=== PATIENT | male | born 1980 | race Hispanic/Latino ===

== ENCOUNTER 2016-06-02 02:58 | Emergency (ER) | payer MEDICAID ==
[2016-06-02 02:58] VITALS: BMI 23.3
[2016-06-02 03:37] VITALS: BP 111/72; PULSE 96; RESP 16; TEMP 98.8; O2SAT 98
== END 2016-06-02 03:50 | disposition left against medical advice (07) ==
LOC: H.ER 02:58
DX: Z02.89 Encounter for other administrative examinations (principal)

== ENCOUNTER 2016-08-02 07:29 | Emergency (ER) | payer MEDICAID ==
[2016-08-02 07:30] VITALS: BMI 23.3
[2016-08-02 07:43] VITALS: BP 119/65; PULSE 98; RESP 18; TEMP 98.5; O2SAT 96
--- NOTE | 2016-08-02 08:13 | ED PDOC ---
HPI: Seizure Time Seen by Provider: 08/02/16 07:57 Chief Complaint (Nursing): Seizure Chief Complaint (Provider): Seizure History Per: Patient History/Exam Limitations: no limitations Recent Seizure Activity Began: Hours Ago: Number Of Seizures: One Precipitating Factor(s): None Associated Symptoms: Injury As A Result Of Seizure Activity Severity: Mild Additional History Per: Patient Additional Complaint(s): Patient is a 35 year old male, who has a history of seizure disorder, presents to the ED complaining of unwitnessed seizure at 2:00 today. Patient reports falling with injury to the left side of his face. Duration of seizure is unknown because it was unwitnessed. Patient has an increasing dose of Depakote due to increasing seizures. Patient denies any other injuries. Past Medical History Reviewed: Historical Data, Nursing Documentation, Vital Signs Vital Signs: Last Vital Signs Temp 98.5 F 08/02/16 07:42 Pulse 98 H 08/02/16 07:42 Resp 18 08/02/16 07:42 BP 119/65 08/02/16 07:42 Pulse Ox 96 08/02/16 09:58 - Medical History PMH: Anxiety, Asthma, Depression, Post Traumatic Stress Disorder, Seizures Denies: Diabetes, Hepatitis, HIV, HTN, Pulmonary Embolism, Chronic Kidney Disease, Sexually Transmitted Disease - Surgical History Surgical History: Appendectomy, Hernia Repair, Tonsillectomy (+ Adenoidectomy) - Family History Family History: States: No Known Family Hx - Immunization History Hx Tetanus Toxoid Vaccination: Yes (<10 years) - Home Medications Home Medications: Ambulatory Orders Medication Instructions Recorded Albuterol HFA [Ventolin HFA 90 1 puff INH PRN PRN 01/31/16 mcg/actuation (8 g)] ARIPiprazole [Abilify] 10 mg PO DAILY #30 tab 02/05/16 Divalproex [Depakote DR] 500 mg PO BID #60 tcp 02/05/16 Nicotine 14 mg/24 hr [Nicoderm CQ] 1 patch TD DAILY #28 patch 02/05/16 PARoxetine [Paxil] 20 mg PO HS #30 tab 02/05/16 traZODone [Desyrel] 50 mg PO HS #30 tab 02/05/16 - Allergies Allergies/Adverse Reactions: Allergies Allergy/AdvReac Type Severity Reaction Status Date / Time No Known Allergies Allergy Verified 01/31/16 13:02 Review of Systems ROS Statement: Except As Marked, All Systems Reviewed And Found Negative Constitutional: Positive for: Other (Sz +head injury) Cardiovascular: Negative for: Chest Pain Physical Exam - Reviewed Nursing Documentation Reviewed: Yes Vital Signs Reviewed: Yes - Physical Exam Appears: Positive for: Well, Non-toxic, No Acute Distress Head Exam: Positive for: NORMAL INSPECTION, NORMOCEPHALIC. Negative for: ATRAUMATIC (3cm LAC under left eye -no palpable fx) Skin: Positive for: Normal Color, Warm, DRY Eye Exam: Positive for: EOMI, Normal appearance, PERRL Neck: Positive for: Normal, Painless ROM, Supple Cardiovascular/Chest: Positive for: Regular Rate, Rhythm. Negative for: Gallop , Murmur Respiratory: Positive for: Normal Breath Sounds. Negative for: Accessory Muscle Use, Rhonchi, Respiratory Distress Extremity: Positive for: Normal ROM Neurologic/Psych: Positive for: Alert, Oriented (x3) - ECG O2 Sat by Pulse Oximetry: 96 (RA) Pulse Ox Interpretation: Normal Medical Decision Making Medical Decision Making: Time: 8:00 Impression: 35 y/o w/ Sz Plan: CT Head CT Maxillofacial Valproic Acid 9:55 Patient wishes to leave prior to completion of CT scan. Aware of risks including recurrent Sz and/or . Scribe Attestation: Documented by Shakeel Boyd acting as a scribe for Diego Aquino MD. Scribe Attestation: All medical record entries made by the Scribe were at my direction and personally dictated by me. I have reviewed the chart and agree that the record accurately reflects my personal performance of the history, physical exam, medical decision making, and the department course for this patient. I have also personally directed, reviewed, and agree with the discharge instructions and disposition. Disposition - Clinical Impression Clinical Impression: Recurrent seizures, Laceration - Patient ED Disposition Is Patient to be Admitted: No Counseled Patient/Family Regarding: Diagnosis, Need For Followup - Disposition Referrals: [facility] [Outside] Disposition: Against Medical Advice Disposition Time: 09:59 Condition: FAIR Instructions: Recurrent Seizures in Adults (ED), Facial Laceration (ED) Laceration - Laceration Repair No standard instances Wound Length (In cm): 3 Description Of Wound: Linear Wound Cleansed With: Sterile Saline Anesthesia: Lidocaine 1%, With Epi (3cc) Wound Examination: Irrigated With Saline Wound Closure: Suture Suture Technique And Material Used: Interrupted, Nylon (#6) Wound Complexity: Simple
[2016-08-02] MEDS ORDERED: Lidocaine 2% w Epi 1:100,000 Inj IJ ONE (08:15)
[2016-08-02] MEDS ORDERED: Lidocaine/Epi 1% 1:100000 20 ML IJ ONE (08:19)
== END 2016-08-02 10:19 | disposition left against medical advice (07) ==
LOC: H.ER 07:29
DX: G40.909 Epilepsy, unspecified, not intractable, without status epilepticus (principal); S01.81XA Laceration without foreign body of other part of head, initial encounter; W19.XXXA Unspecified fall, initial encounter; Y92.89 Other specified places as the place of occurrence of the external cause

== ENCOUNTER 2016-08-07 18:59 | Emergency (ER) | payer MEDICAID ==
[2016-08-07 18:59] VITALS: BMI 23.3
[2016-08-07 19:04] VITALS: BP 108/72; PULSE 104; RESP 18; TEMP 99.1; O2SAT 98
[2016-08-07] MEDS ORDERED: Sodium Chloride 0.9% 1,000 ML IV STA (19:37)
--- NOTE | 2016-08-07 19:43 | ED PDOC ---
HPI: Seizure Time Seen by Provider: 08/07/16 19:12 Chief Complaint (Nursing): Seizure Chief Complaint (Provider): Tremor and dizzy History Per: Patient History/Exam Limitations: no limitations Additional Complaint(s): Pt. with dizziness since waking up. Feels tremors more frequent today. No full seizure. Suffers from seizures and gets tremors. Pt. with no vision changes, headaches, back pain, dyspnea, chest pain, abd pain, nausea, vomit, leg pain, fall and injury. Fell and had seizure last week and had stitches to the face. Had ct at that time and was ok per pt. Denies numbness, tingles. Ran out of ativan and wants it now. Also feels panic attacks today. Not suicidal or homicidal. No drugs or etoh. Past Medical History Reviewed: Nursing Documentation, Vital Signs Vital Signs: Last Vital Signs Temp 99.1 F 08/07/16 19:00 Pulse 104 H 08/07/16 19:00 Resp 18 08/07/16 19:00 BP 108/72 08/07/16 19:00 Pulse Ox 98 08/07/16 20:03 - Medical History PMH: Anxiety, Bipolar Disorder, Depression, Post Traumatic Stress Disorder, Seizures Denies: Asthma, Diabetes, Hepatitis, HIV, HTN, Pulmonary Embolism, Chronic Kidney Disease, Sexually Transmitted Disease Other PMH: PE - Surgical History Surgical History: Appendectomy, Hernia Repair, Tonsillectomy (+ Adenoidectomy) - Family History Family History: States: Unknown Family Hx - Living Arrangements Living Arrangements: With Family - Social History Current smoker - smoking cessation education provided: No Alcohol: None Drugs: Denies - Immunization History Hx Tetanus Toxoid Vaccination: Yes (<10 years) - Home Medications Home Medications: Ambulatory Orders Medication Instructions Recorded Albuterol HFA [Ventolin HFA 90 1 puff INH PRN PRN 01/31/16 mcg/actuation (8 g)] ARIPiprazole [Abilify] 10 mg PO DAILY #30 tab 02/05/16 Divalproex [Depakote DR] 500 mg PO BID #60 tcp 02/05/16 Nicotine 14 mg/24 hr [Nicoderm CQ] 1 patch TD DAILY #28 patch 02/05/16 PARoxetine [Paxil] 20 mg PO HS #30 tab 02/05/16 traZODone [Desyrel] 50 mg PO HS #30 tab 02/05/16 - Allergies Allergies/Adverse Reactions: Allergies Allergy/AdvReac Type Severity Reaction Status Date / Time No Known Allergies Allergy Verified 08/07/16 19:00 Review of Systems ROS Statement: Except As Marked, All Systems Reviewed And Found Negative Neurological: Positive for: Dizziness, Other (tremors) Physical Exam - Reviewed Nursing Documentation Reviewed: Yes Vital Signs Reviewed: Yes - Physical Exam Appears: Positive for: Non-toxic, No Acute Distress Head Exam: Positive for: ATRAUMATIC, NORMAL INSPECTION, NORMOCEPHALIC Skin: Positive for: Normal Color, Warm, DRY Eye Exam: Positive for: EOMI, Normal appearance, PERRL ENT: Positive for: Other (L face with stitches; nontender; echymosis) Neck: Positive for: Normal, Painless ROM, Supple Cardiovascular/Chest: Positive for: Regular Rate, Rhythm. Negative for: Edema Respiratory: Positive for: CNT, Normal Breath Sounds Gastrointestinal/Abdominal: Positive for: Normal Exam, Bowel Sounds, Soft. Negative for: Tenderness Back: Positive for: Normal Inspection. Negative for: L CVA Tenderness, R CVA Tenderness Extremity: Positive for: Normal ROM. Negative for: Tenderness, Pedal Edema Neurologic/Psych: Positive for: Alert, certified athletic trainer II-XII, Oriented. Negative for: Motor/Sensory Deficits, Facial Droop - Laboratory Results Result Diagrams: 08/07/16 19:50 08/07/16 19:50 Interpretation Of Abn Labs: 11 wbc; low valproic acid level - ECG ECG: Positive for: Interpreted By Me, Viewed By Me ECG Rhythm: Positive for: Normal QRS, Normal ST Segment, Sinus Rhythm O2 Sat by Pulse Oximetry: 98 Pulse Ox Interpretation: Normal - Progress ED Course And Treament: 2106: Stable. AAOx3. Pain free. Tolerated PO. Crisis saw pt. Does not meet criteria for admit. Ativan given which will help with seizure like episodes. Pt. to fu with pcp and neurologist for seizures and depakote adjutsment. Disposition - Clinical Impression Clinical Impression: Panic attack, Seizure, Seizure secondary to subtherapeutic anticonvulsant medication - Patient ED Disposition Is Patient to be Admitted: No Counseled Patient/Family Regarding: Studies Performed, Diagnosis, Need For Followup - Disposition Referrals: [facility] [Outside] - 08/10/16 Disposition: Routine/Home Disposition Time: 21:10 Condition: STABLE Additional Instructions: Return if not better in 3 days. Instructions: Panic Attack (ED), Epilepsy (ED)
[2016-08-07 20:04] LABS: BASO # 0.1 K/uL (0.0-0.2); EOS # 0.2 K/uL (0.0-0.7); EOS % 2.1 % (0.0-4.0); HEMATOCRIT 45.3 % (35.0-51.0); LYMPH % 45.7 % (20.0-40.0); MEAN CELL VOLUME 94.4 fl (80.0-94.0); MEAN CORPUSCULAR HEMOGLOBIN 32.6 pg (27.0-31.0); MEAN CORPUSCULAR HGB CONC 34.5 g/dL (33.0-37.0); MEAN PLATELET VOLUME 7.4 fl (7.2-11.7); MONO % 8.7 % (0.0-10.0); NEUT # 4.7 K/uL (1.8-7.0); NEUT % 42.5 % (50.0-75.0); NRBC % 0.2 % (0.0-0.0); RED CELL DISTRIBUTION WIDTH 13.4 % (11.5-14.5)
[2016-08-07 20:36] LABS: ALB/GLOB RATIO 1.6 (1.0-2.1); ALCOHOL SERUM < 10 mg/dl (0-10); ALKALINE PHOSPHATASE 66 U/L (38-126); ALT/SGPT 48 U/L (21-72); AST/SGOT 33 U/L (17-59); BILIRUBIN,TOTAL 0.3 mg/dl (0.2-1.3); BLOOD UREA NITROGEN 21 mg/dl (9-20); CALCIUM 9.5 mg/dL (8.4-10.2); CARBON DIOXIDE 30 mmol/L (22-30); CHLORIDE 100 mmol/L (98-107); GFR AFRICAN-AMERICAN > 60; GLUCOSE,RANDOM 78 mg/dL (75-110); SODIUM 142 mmol/l (132-148); TOTAL PROTEIN 7.5 G/DL (6.3-8.2)
--- NOTE | 2016-08-08 14:04 | CARD ---
APPROVED REPORT EKG Measurement Heart [id number] <Conclusion> Normal sinus rhythm Inferior infarct, age undetermined Abnormal ECG
== END 2016-08-07 21:24 | disposition home or self-care (01) ==
LOC: H.ER 18:59
DX: F41.0 Panic disorder [episodic paroxysmal anxiety] (principal); R56.9 Unspecified convulsions

== ENCOUNTER 2016-08-11 08:57 | Emergency (ER) | payer MEDICAID ==
[2016-08-11 09:00] VITALS: TEMP 97
[2016-08-11 09:01] VITALS: BMI 24.5
[2016-08-11 09:07] VITALS: BP 110/65; PULSE 86; RESP 20; O2SAT 98
--- NOTE | 2016-08-11 09:19 | ED PDOC ---
HPI: Wound Care - HPI Time Seen by Provider: 08/11/16 09:14 Chief Complaint (Nursing): Suture/Staple Removal Chief Complaint (Provider): Suture removal History Per: Patient History Of Present Illness: Pt sustained facial laceration 08/02/16 and had sutures placed on left face. Pt denies any signs of infection, denies fever chills. Additional Complaint(s): Pt additionally reports he ran out of his Ativan medication and states he is having a panic attack, is requesting admission. He denies any other medical complaints. Past Medical History Reviewed: Historical Data, Nursing Documentation, Vital Signs Vital Signs: Last Vital Signs Temp 97 F L 08/11/16 09:04 Pulse 86 08/11/16 09:04 Resp 20 08/11/16 09:04 BP 110/65 08/11/16 09:04 Pulse Ox 98 08/11/16 09:04 - Medical History PMH: Anxiety, Bipolar Disorder, Depression, Post Traumatic Stress Disorder, Seizures Denies: Asthma, Diabetes, Hepatitis, HIV, HTN, Pulmonary Embolism, Chronic Kidney Disease, Sexually Transmitted Disease - Surgical History Surgical History: Appendectomy, Hernia Repair, Tonsillectomy (+ Adenoidectomy) - Family History Family History: States: Unknown Family Hx - Living Arrangements Living Arrangements: With Family - Social History Current smoker - smoking cessation education provided: No Alcohol: None Drugs: Denies - Home Medications Home Medications: Ambulatory Orders Medication Instructions Recorded Albuterol HFA [Ventolin HFA 90 1 puff INH PRN PRN 01/31/16 mcg/actuation (8 g)] ARIPiprazole [Abilify] 10 mg PO DAILY #30 tab 02/05/16 Divalproex [Depakote DR] 500 mg PO BID #60 tcp 02/05/16 Nicotine 14 mg/24 hr [Nicoderm CQ] 1 patch TD DAILY #28 patch 02/05/16 PARoxetine [Paxil] 20 mg PO HS #30 tab 02/05/16 traZODone [Desyrel] 50 mg PO HS #30 tab 02/05/16 - Allergies Allergies/Adverse Reactions: Allergies Allergy/AdvReac Type Severity Reaction Status Date / Time No Known Allergies Allergy Verified 08/11/16 09:04 Review of Systems ROS Statement: Except As Marked, All Systems Reviewed And Found Negative Skin: Positive for: Other (sutures in place left face) Psych: Positive for: Other (panic attack) Physical Exam - Reviewed Nursing Documentation Reviewed: Yes Vital Signs Reviewed: Yes - Physical Exam Appears: Positive for: Well, Non-toxic, No Acute Distress Head Exam: Positive for: ATRAUMATIC, NORMAL INSPECTION, NORMOCEPHALIC Skin: Positive for: Normal Color (well healed sutures noted on left face. no erythema, edema, fluctuance, discharge noted.), Warm Eye Exam: Positive for: Normal appearance Neck: Positive for: Normal Cardiovascular/Chest: Positive for: Regular Rate, Rhythm Respiratory: Positive for: Normal Breath Sounds. Negative for: Respiratory Distress Neurologic/Psych: Positive for: Alert, Oriented - ECG O2 Sat by Pulse Oximetry: 98 (RA) Pulse Ox Interpretation: Normal Medical Decision Making Medical Decision Making: Time: 914 Impression: Wound care, panic attack Plan: -- Crisis evaluation -- Sutures removed, pt tolerated removal well. -- Reassess Time: 10:00 Pt left facility prior to crisis evaluation. Scribe Attestation: Documented by Tanvi Barron acting as a scribe for Roselyn Rivera MD. Provider Attestation: All medical record entries made by the Scribe were at my direction and personally dictated by me. I have reviewed the chart and agree that the record accurately reflects my personal performance of the history, physical exam, medical decision making, and the department course for this patient. I have also personally directed, reviewed, and agree with the discharge instructions and disposition. Disposition - Clinical Impression Clinical Impression: Removal of suture, Anxiety - Disposition Disposition: Left W/O Treatment Disposition Time: 10:00 Condition: STABLE
== END 2016-08-11 10:53 | disposition left against medical advice (07) ==
LOC: H.ER 08:57
DX: Z48.02 Encounter for removal of sutures (principal)

== ENCOUNTER 2017-08-12 17:31 | Emergency (ER) | payer MEDICAID ==
[2017-08-12 17:31] VITALS: BMI 24.5
[2017-08-12] MEDS ORDERED: Sodium Chloride 0.9% 1,000 ML IV STA (18:10)
--- NOTE | 2017-08-12 18:13 | ED PDOC ---
HPI: Seizure Time Seen by Provider: 08/12/17 18:02 Chief Complaint (Nursing): Seizure Chief Complaint (Provider): Seizure like activity History Per: Patient, Family History/Exam Limitations: no limitations Additional Complaint(s): Pt. has been having prodrome symtoms like tightening up and feels seizure coming. Does not go into a full seizure. Has had these symptoms more frequently over 1 week. In general he gets this frequently. No chest pain, dyspnea, weakness, dizziness, headaches, abd pain, nausea, vomit, diarrhea. No vision changes. Takes depakote for it. On klonopin. Past Medical History Reviewed: Nursing Documentation, Vital Signs Vital Signs: Last Vital Signs Temp 98.6 F 08/12/17 17:34 Pulse 89 08/12/17 17:34 Resp 18 08/12/17 17:34 BP 93/62 L 08/12/17 17:34 Pulse Ox 98 08/12/17 18:14 - Medical History PMH: Anxiety, Bipolar Disorder, Depression, Post Traumatic Stress Disorder, Seizures Denies: Asthma, Diabetes, Hepatitis, HIV, HTN, Pulmonary Embolism, Chronic Kidney Disease, Sexually Transmitted Disease Other PMH: PE - Surgical History Surgical History: Appendectomy, Hernia Repair, Tonsillectomy (+ Adenoidectomy) - Family History Family History: States: Unknown Family Hx - Living Arrangements Living Arrangements: With Family - Social History Alcohol: None Drugs: Denies - Home Medications Home Medications: Ambulatory Orders Medication Instructions Recorded Albuterol HFA [Ventolin HFA 90 1 puff INH PRN PRN 01/31/16 mcg/actuation (8 g)] ARIPiprazole [Abilify] 10 mg PO DAILY #30 tab 02/05/16 Divalproex [Depakote DR] 500 mg PO BID #60 tcp 02/05/16 Nicotine 14 mg/24 hr [Nicoderm CQ] 1 patch TD DAILY #28 patch 02/05/16 PARoxetine [Paxil] 20 mg PO HS #30 tab 02/05/16 traZODone [Desyrel] 50 mg PO HS #30 tab 02/05/16 - Allergies Allergies/Adverse Reactions: Allergies Allergy/AdvReac Type Severity Reaction Status Date / Time No Known Allergies Allergy Verified 08/11/16 09:04 Review of Systems ROS Statement: Except As Marked, All Systems Reviewed And Found Negative Neurological: Positive for: Seizures (pre-seizure activity) Physical Exam - Reviewed Nursing Documentation Reviewed: Yes Vital Signs Reviewed: Yes - Physical Exam Appears: Positive for: Non-toxic, No Acute Distress Head Exam: Positive for: ATRAUMATIC, NORMAL INSPECTION, NORMOCEPHALIC Skin: Positive for: Normal Color, Warm, DRY Eye Exam: Positive for: EOMI, Normal appearance, PERRL ENT: Positive for: Normal ENT Inspection Neck: Positive for: Normal, Painless ROM, Supple Cardiovascular/Chest: Positive for: Regular Rate, Rhythm Respiratory: Positive for: CNT, Normal Breath Sounds Gastrointestinal/Abdominal: Positive for: Normal Exam, Soft. Negative for: Tenderness Back: Positive for: Normal Inspection. Negative for: L CVA Tenderness, R CVA Tenderness Extremity: Positive for: Normal ROM. Negative for: Tenderness, Pedal Edema Neurologic/Psych: Positive for: Alert, primer inspector II-XII, Oriented. Negative for: Motor/Sensory Deficits, Aphasia, Facial Droop - Laboratory Results Interpretation Of Abn Labs: 13.5 valproic - ECG ECG: Positive for: Interpreted By Me, Viewed By Me ECG Rhythm: Positive for: Normal QRS, Normal ST Segment, Sinus Rhythm O2 Sat by Pulse Oximetry: 98 Pulse Ox Interpretation: Normal - CT Scan/US head Other Rad Studies (CT/US): Read By Radiologist Other Rad Interpretation: no acute - Progress ED Course And Treament: 1906: Stable. AAOx3. Pain free. Tolerated PO. Fu with pcp. Will load with 1 dose of valproic acid. Disposition - Clinical Impression Clinical Impression: Seizure disorder - Patient ED Disposition Is Patient to be Admitted: No Counseled Patient/Family Regarding: Studies Performed, Diagnosis, Need For Followup - Disposition Referrals: Miah Desir MD [Family Provider] - 08/13/17 Disposition: Routine/Home Disposition Time: 19:07 Condition: STABLE Additional Instructions: Return if not better in 3 days. Instructions: Epilepsy in Adults Forms: [employer] (Sudanese), [facility] ED School/Work Excuse
[2017-08-12 18:31] LABS: BASO % 0.4 % (0.0-2.0); EOS # 0.1 K/uL (0.0-0.7); EOS % 0.9 % (0.0-4.0); HEMOGLOBIN 16.3 g/dL (12.0-18.0); LYMPH # 3.2 K/uL (1.0-4.3); LYMPH % 38.1 % (20.0-40.0); MEAN CELL VOLUME 95.2 fl (80.0-94.0); MEAN CORPUSCULAR HGB CONC 34.7 g/dL (33.0-37.0); MEAN PLATELET VOLUME 8.1 fl (7.2-11.7); MONO # 0.8 K/uL (0.0-0.8); MONO % 9.4 % (0.0-10.0); NEUT # 4.4 K/uL (1.8-7.0); NEUT % 51.2 % (50.0-75.0); RBC 4.94 Mil/uL (4.40-5.90); RED CELL DISTRIBUTION WIDTH 13.4 % (11.5-14.5); WHITE BLOOD COUNT 8.5 K/uL (4.8-10.8)
[2017-08-12 18:43] LABS: ALB/GLOB RATIO 1.6 (1.0-2.1); ALBUMIN 4.7 g/dL (3.5-5.0); ALT/SGPT 28 U/L (21-72); AST/SGOT 27 U/L (17-59); BLOOD UREA NITROGEN 16 mg/dl (9-20); CALCIUM 10.2 mg/dL (8.4-10.2); GFR AFRICAN-AMERICAN > 60; GFR NON-AFRICAN AMERICAN > 60
--- NOTE | 2017-08-12 19:01 | CT ---
PROCEDURE: CT HEAD WITHOUT CONTRAST. HISTORY: headache COMPARISON: Noncontrast head CT 11/11/2015. TECHNIQUE: Axial computed tomography images were obtained through the head/brain without intravenous contrast. Radiation dose: Total exam DLP = 903.28 mGy-cm. This CT exam was performed using one or more of the following dose reduction techniques: Automated exposure control, adjustment of the mA and/or kV according to patient size, and/or use of iterative reconstruction technique. FINDINGS: HEMORRHAGE: No intracranial hemorrhage. BRAIN: Normal gomez-white matter differentiation and density are appreciated throughout the cerebrum and cerebellum with the brainstem appearing unremarkable as well. There is no mass effect. There is no suspicious extra-axial fluid collection and the midline brain anatomy appears diffusely unremarkable. VENTRICLES: Unremarkable. No hydrocephalus. CALVARIUM: Unremarkable. PARANASAL SINUSES: Unremarkable as visualized. No significant inflammatory changes. MASTOID AIR CELLS: Unremarkable as visualized. No inflammatory changes. OTHER FINDINGS: None. IMPRESSION: Normal CT of the Head. No significant interval change compared to prior CT 11/11/2015.
[2017-08-13 05:14] VITALS: BP 97/64; PULSE 80; RESP 20; TEMP 98.4; O2SAT 99
--- NOTE | 2017-08-13 10:23 | CARD ---
APPROVED REPORT EKG Measurement Heart [id number] <Conclusion> Normal sinus rhythm Normal ECG
== END 2017-08-12 20:55 | disposition home or self-care (01) ==
LOC: H.ER 17:31
DX: G40.909 Epilepsy, unspecified, not intractable, without status epilepticus (principal); F31.9 Bipolar disorder, unspecified; F43.10 Post-traumatic stress disorder, unspecified
CPT/HCPCS: 70450; 80053; 80164; 80320; 84484; 85025; 93005; 96360; 99284; J7030

== ENCOUNTER 2018-06-30 18:08 | Emergency (ER) | payer MEDICAID ==
[2018-06-30 18:08] VITALS: BMI 24.6
[2018-06-30 18:20] VITALS: BP 119/71; PULSE 96; RESP 16; TEMP 97.2; O2SAT 100
[2018-06-30] MEDS ORDERED: Divalproex 500 mg ER (ONCE DAILY formulation) PO STA (19:08)
--- NOTE | 2018-06-30 19:44 | ED PDOC ---
HPI: Psych/Substance Abuse Time Seen by Provider: 06/30/18 18:25 Chief Complaint (Nursing): Medical Clearance History Per: Patient Additional Complaint(s): Pt. brought in by police department for medical and psychiatric clearance. Pt. states during the arrest he began to feel very anxious and had suicidal thoughts but after coming to ED he's since felt better. Pt. requesting his 2nd dose of Depakote 500mg ER before going to detention. Offers no complaints at this time. D enies SI/HI, hallucinations. Past Medical History Reviewed: Historical Data, Nursing Documentation, Vital Signs Vital Signs: Last Vital Signs Temp 97.2 F L 06/30/18 18:19 Pulse 96 H 06/30/18 18:19 Resp 16 06/30/18 18:19 BP 119/71 06/30/18 18: Pulse Ox 100 06/30/18 18:19 Primary Care Provider: FAMILY PROVIDER,NO - Medical History PMH: Anxiety, Asthma, Bipolar Disorder, Depression, HTN, Post Traumatic Stress Disorder, Seizures (LAST SEIZURE 3 WEEKS AGO TREMORS ) Denies: Diabetes, Hepatitis - Surgical History Surgical History: Appendectomy, Hernia Repair, Tonsillectomy (+ Adenoidectomy) - Family History Family History: States: No Known Family Hx - Home Medications Home Medications: Ambulatory Orders Medication Instructions Recorded Divalproex [Depakote DR] 500 mg PO BID #60 tcp 02/05/16 Nicotine 14 mg/24 hr [Nicoderm CQ] 1 patch TD DAILY #28 patch 02/05/16 traZODone [Desyrel] 50 mg PO HS #30 tab 02/05/16 ARIPiprazole [Abilify] 20 mg PO DAILY 10/19/17 PARoxetine [Paxil] 3 tab PO DAILY 10/19/17 Propranolol [Inderal] 20 mg PO DAILY 10/19/17 busPIRone [Buspar] 2 tab PO BID 10/19/17 clonazePAM [clonAZEPAM] 1 mg PO TID 10/19/17 - Allergies Allergies/Adverse Reactions: Allergies Allergy/AdvReac Type Severity Reaction Status Date / Time No Known Allergies Allergy Verified 08/11/16 09:04 Review of Systems ROS Statement: Except As Marked, All Systems Reviewed And Found Negative Psych: Positive for: Anxiety, Suicidal ideation Physical Exam - Physical Exam Appears: Positive for: Well, Non-toxic, No Acute Distress Head Exam: Positive for: ATRAUMATIC, NORMAL INSPECTION, NORMOCEPHALIC Skin: Positive for: Normal Color, Warm. Negative for: Rash Eye Exam: Positive for: Normal appearance ENT: Positive for: Normal ENT Inspection Cardiovascular/Chest: Positive for: Regular Rate, Rhythm Respiratory: Positive for: Normal Breath Sounds Gastrointestinal/Abdominal: Positive for: Normal Exam, Soft. Negative for: Tenderness Neurological/Psych: Positive for: Awake, Alert, Oriented (x3), Mood/Affect (calm, cooperative, happy) - ECG O2 Sat by Pulse Oximetry: 100 - Progress ED Course And Treament: Depakote 500mg ER PO ordered. Crisis eval ordered. Disposition - Clinical Impression Clinical Impression: Anxiety - Patient ED Disposition Is Patient to be Admitted: Transfer of Care (Signed out to Katie CAMILO pending crisis disposition.) - Disposition Disposition Time: 20:00 Condition: STABLE Instructions: General (DC) Forms: [employer] (Bengali)
--- NOTE | 2018-06-30 22:07 | ED PDOC ---
- ECG O2 Sat by Pulse Oximetry: 100 Medical Decision Making Medical Decision Making: Crisis evaluation completed. Disposition - Clinical Impression Clinical Impression: Anxiety - POA Present On Arrival: None - Disposition Disposition: Routine/Home Disposition Time: 22:05 Condition: GOOD Additional Instructions: Pt medically and psychiatrically stable for incarceration. Instructions: General (DC), Anxiety, Adult (DC) Forms: [employer] (Dutch)
== END 2018-06-30 22:25 ==
LOC: H.ER 18:08
DX: F41.9 Anxiety disorder, unspecified (principal); F31.9 Bipolar disorder, unspecified; F43.10 Post-traumatic stress disorder, unspecified; I10 Essential (primary) hypertension